=== PATIENT | male | born 1940 | race Two or more races ===

== ENCOUNTER 2016-04-27 04:08 | Emergency (ER) | payer MEDICARE, OTHER ==
[~2016-04-27] VITALS: Ht 170.2 cm; Wt 72.6 kg
[2016-04-27 06:21] VITALS: BP 162/85
--- NOTE | 2016-04-27 06:24 | Emergency Room Report ---
History of Present Illness General Chief Complaint: General Complaint Source: Patient, EMS Present Illness HPI Patient presents by paramedics reports that It was extremely outside Patient has a history of schizophrenia Is on medication States that he has had difficulty staying at specific board and care facilities Otherwise patient denies any chest pain or shortness of breath denies any back or flank pain Requesting food upon arrival Denies any suicidal or homicidal thoughts Allergies: Coded Allergies: No Known Allergies (Unverified , 04/27/16) Patient History Past Medical History: see triage record Pertinent Family History: none Reviewed Nursing Documentation: PMH: Agreed, PSxH: Agreed Nursing Documentation-PMH Hx Hypertension: Yes Review of Systems All Other Systems: negative except mentioned in HPI Physical Exam Vital Signs Date Time Temp Pulse Resp B/P Pulse Ox O2 Delivery O2 Flow Rate FiO2 04/27/16 04:09 97.3 76 16 171/87 94 Room Air Sp02 EP Interpretation: reviewed, normal General Appearance: well appearing, no apparent distress Head: normocephalic, atraumatic Eyes: bilateral eye EOMI, bilateral eye PERRL ENT: hearing grossly normal, normal pharynx, TMs + canals normal, uvula midline , other - Poor dentition Neck: full range of motion, supple, no meningismus, no bony tend Respiratory: lungs clear, normal breath sounds, no rhonchi, no respiratory distress, no retraction, no accessory muscle use Cardiovascular #1: normal peripheral pulses, regular rate, rhythm, no edema, no gallop, no JVD, no murmur Gastrointestinal: normal bowel sounds, non tender, soft, no mass, no organomegaly, non-distended, no guarding, no hernia, no pulsatile mass, no rebound Genitourinary: no CVA tenderness Neurologic: oriented x3, responsive, research statistician III-XII nml as tested, motor strength/ tone normal, sensory intact Psychiatric: mood/affect normal - Reports history of schizophrenia but denies any homicidal or suicidal thoughts Skin: normal color, no rash, warm/dry, palpation normal Lymphatic: normal inspection, no adenopathy Medical Decision Making Diagnostic Impression: Primary Impression: schizophrenia Additional Impression: Encounter for medical screening examination ER Course Patient is a fairly benign medical evaluation Otherwise denies any other medical complaints Patient is requesting assistance with finding living situation Patient was dispositioned and pending social work assistance please refer to the social work note for full specifics and update Patient was provided further information and discharge for further outpatient care Last Vital Signs Date Time Temp Pulse Resp B/P Pulse Ox O2 Delivery O2 Flow Rate FiO2 04/27/16 04:09 97.3 76 16 171/87 94 Room Air Status: improved Disposition: HOME, SELF-CARE Condition: Stable Referrals: NOT CHOSEN IPA/MD,REFERRING (PCP) Patient Instructions: Schizophrenia Additional Instructions: Patient is provided with the discharge instructions notified to follow up with primary doctor in the next 2-3 days otherwise return to the er with any worsening symptoms. Please note that this report is being documented using [employer] technology. This can lead to erroneous entry secondary to incorrect interpretation by the dictating instrument. JESSICA ROTH D.O. Apr 27, 2016 06:24
[2016-04-27 07:26] VITALS: BP 169/90
[2016-04-27] MEDS ORDERED: LISINOPRIL20 MG ORAL (09:22)
[2016-04-27 11:55] VITALS: BP 169/90
== END 2016-04-27 11:56 | disposition home or self-care (01) ==
LOC: EDBD 04:08 → EMR 04:24
DX: F20.9 Schizophrenia, unspecified (principal); I10 Essential (primary) hypertension
CPT/HCPCS: 99283